=== PATIENT | male | born 1950 | race African-American/Black ===

== ENCOUNTER 2017-07-04 08:28 | Emergency (ER) | payer MEDICARE, OTHER ==
--- NOTE | 2017-07-04 08:59 | EDPHYS ---
Physician Documentation [facility] Name: Arik Blount Jr Age: 66 yrs Sex: Male : 1950 Arrival Date: 07/04/2017 Time: 08:32 Bed 16 Private MD: ASIYA STANFORD ED Physician Nabil Agudelo HPI: 07/04 08:55 This 66 yrs old Black Male presents to ER via Ambulatory with complaints of Insect Bite.jr8 08:55 Patient stated that he noticed red spot on left lateral chest wall region. Stated that jr8 it was tender to touch. Wanted it evaluated for possible spider bite . Severity of symptoms: At their worst the symptoms were mild in the emergency department the symptoms are unchanged. The patient has not experienced similar symptoms in the past. The patient has not recently seen a physician. Historical: - Allergies: 08:53 No Known Allergies; jl7 - Home Meds: 08:53 Clonidine Oral [Active]; Lasix Oral [Active]; carvedilol oral oral [Active]; jl7 Allopurinol Oral [Active]; - PMHx: 08:53 Hypertension; Gout; Type 2 Disecting aorta; jl7 - PSHx: 08:53 None; jl7 - Immunization history:: Adult Immunizations up to date. - Social history:: Smoking status: Patient/guardian denies using tobacco. ROS: 08:55 Eyes: Negative for injury, pain, redness, and discharge, ENT: Negative for injury, jr8 pain, and discharge, Neck: Negative for injury, pain, and swelling, Cardiovascular: Negative for chest pain, palpitations, and edema, Respiratory: Negative for shortness of breath, cough, wheezing, and pleuritic chest pain, Abdomen/GI: Negative for abdominal pain, nausea, vomiting, diarrhea, and constipation, Back: Negative for injury and pain, MS/Extremity: Negative for injury and deformity, Neuro: Negative for headache, weakness, numbness, tingling, and seizure. 08:55 Skin: Positive for comedo . Exam: 08:55 Cardiovascular: Regular rate and rhythm with a normal S1 and S2. No gallops, murmurs, jr8 or rubs. Normal PMI, no JVD. No pulse deficits. Respiratory: Lungs have equal breath sounds bilaterally, clear to auscultation and percussion. No rales, rhonchi or wheezes noted. No increased work of breathing, no retractions or nasal flaring. Abdomen/GI: Soft, non-tender, with normal bowel sounds. No distension or tympany. No guarding or rebound. No evidence of tenderness throughout. Back: No spinal tenderness. No costovertebral tenderness. Full range of motion. MS/ Extremity: Pulses equal, no cyanosis. Neurovascular intact. Full, normal range of motion. Neuro: Awake and alert, GCS 15, oriented to person, place, time, and situation. Cranial nerves II-XII grossly intact. Motor strength 5/5 in all extremities. Sensory grossly intact. Cerebellar exam normal. Normal gait. 08:55 Skin: Patient has single comedo noted to lateral left thorax. No other rashes or lesions noted . Vital Signs: 08:53 BP 118 / 66; Pulse 64; Resp 18 S; Temp 97.8(O); Pulse Ox 96% on R/A; Weight 144.24 kg jl7 (R); Height 5 ft. 9 in. (175.26 cm) (R); Pain 0/10; 08:53 Body Mass Index 46.96 (144.24 kg, 175.26 cm) jl7 MDM: 08:44 Patient medically screened. jr8 08:55 Data reviewed: vital signs, nurses notes, and as a result, I will discharge patient. jr8 Data interpreted: Pulse oximetry: on room air is 96 %. Interpretation: normal. Counseling: I had a detailed discussion with the patient and/or guardian regarding: the historical points, exam findings, and any diagnostic results supporting the discharge/admit diagnosis, the need for outpatient follow up, a family practitioner, to return to the emergency department if symptoms worsen or persist or if there are any questions or concerns that arise at home. Administered Medications: No medications were administered Disposition: 19:03 Co-signature as Attending Physician, Nabil Agudelo MD I agree with the assessment and selvin plan of care. Disposition: 07/04/17 08:58 Discharged to Home. Impression: Comedones . - Condition is Stable. - Discharge Instructions: Abscess, Cellulitis, [id number]. - Prescriptions for Bactroban 2 % Topical Ointment - Apply to affected area 1 application by TOPICAL route every 12 hours; 30 gram. - Medication Reconciliation Form, Thank You Letter, Antibiotic Education, Prescription Opioid Use form. - Follow up: Private Physician; When: As needed; Reason: Recheck today's complaints, Continuance of care, Re-evaluation by your physician. - Problem is new. - Symptoms have improved. Signatures: Nabil Agudelo MD MD cha Roszak, Josh, PA PA jr8 Laly Toledo RN RN jl7
--- NOTE | 2017-07-04 08:59 | ER ---
Nurse's Notes [facility] Name: Arik Blount Jr Age: 66 yrs Sex: Male : 1950 Arrival Date: 07/04/2017 Time: 08:32 Bed 16 Private MD: ASIYA STANFORD Diagnosis: Comedones Presentation: 07/04 08:49 Presenting complaint: Patient states: "I noticed a bite on my side last night and it's jl7 itchy, it's got black in the middle of it and red around it.". Transition of care: patient was not received from another setting of care. Onset of symptoms was July 03, 2017. Initial Sepsis Screen: Does the patient meet any 2 criteria? No. Patient's initial sepsis screen is negative. Does the patient have a suspected source of infection? No. Patient's initial sepsis screen is negative. Care prior to arrival: None. 08:49 Method Of Arrival: Ambulatory jl7 08:49 Acuity: MANAN 4 jl7 Triage Assessment: 08:53 Bite description: bite sustained to posterior aspect of left lateral abdomen is jl7 superficial, by unknown, animal information: vaccination(s) is unknown. General: Appears in no apparent distress. Behavior is calm, cooperative, appropriate for age. Pain: Denies pain. EENT: No deficits noted. No signs and/or symptoms were reported regarding the EENT system. Neuro: Level of Consciousness is awake, alert, obeys commands, Oriented to person, place, time, situation. Cardiovascular: Patient's skin is warm and dry. Respiratory: Airway is patent Respiratory effort is even, unlabored, Respiratory pattern is regular, symmetrical. GI: No signs and/or symptoms were reported involving the gastrointestinal system. : No signs and/or symptoms were reported regarding the genitourinary system. Derm: Skin is pink, warm \\T\\ dry. Musculoskeletal: No signs and/or symptoms reported regarding the musculoskeletal system. Historical: - Allergies: 08:53 No Known Allergies; jl7 - Home Meds: 08:53 Clonidine Oral [Active]; Lasix Oral [Active]; carvedilol oral oral [Active]; jl7 Allopurinol Oral [Active]; - PMHx: 08:53 Hypertension; Gout; Type 2 Disecting aorta; jl7 - PSHx: 08:53 None; jl7 - Immunization history:: Adult Immunizations up to date. - Social history:: Smoking status: Patient/guardian denies using tobacco. Screenin:36 Abuse screen: Denies threats or abuse. Denies injuries from another. Nutritional jl7 screening: No deficits noted. Tuberculosis screening: No symptoms or risk factors identified. Fall Risk None identified. Assessment: 08:56 General: See triage assessment. Derm: Skin bite to left lateral abdomen. jl7 Vital Signs: 08:53 BP 118 / 66; Pulse 64; Resp 18 S; Temp 97.8(O); Pulse Ox 96% on R/A; Weight 144.24 kg jl7 (R); Height 5 ft. 9 in. (175.26 cm) (R); Pain 0/10; 08:53 Body Mass Index 46.96 (144.24 kg, 175.26 cm) jl7 ED Course: 08:32 Patient arrived in ED. rg4 08:33 ASIYA STANFORD is Private Physician. rg4 08:40 Laly Toledo RN is Primary Nurse. jl7 08:44 Jesus Manuel Shea PA is PHCP. jr8 08:44 Nabil Agudelo MD is Attending Physician. jr8 08:50 Triage completed. jl7 08:53 Arm band placed on right wrist. jl7 09:36 Patient has correct armband on for positive identification. Bed in low position. Call jl7 light in reach. Pulse ox on. NIBP on. 09:36 No provider procedures requiring assistance completed. Patient did not have IV access jl7 during this emergency room visit. Administered Medications: No medications were administered Outcome: 08:58 Discharge ordered by . jr8 09:36 Discharged to home ambulatory. jl7 09:36 Condition: stable 09:36 Discharge instructions given to patient, Instructed on discharge instructions, follow up and referral plans. medication usage, Demonstrated understanding of instructions, follow-up care, medications, Prescriptions given X 1. 09:37 Patient left the ED. jl7 Signatures: Jesus Manuel Shea PA PA jr8 Garcia, Rubi rg4 Laly Toledo, TRACI RN jl7
== END 2017-07-04 09:37 | disposition home or self-care (01) ==
LOC: ER 08:28
DX: L70.0 Acne vulgaris (principal); I10 Essential (primary) hypertension; E11.9 Type 2 diabetes mellitus without complications
CPT/HCPCS: 99283